=== PATIENT | male | born 1950 | race Caucasian/White ===

== ENCOUNTER 2023-10-22 12:16 | Emergency (ER) | payer BC, MEDICARE ==
[~2023-10-22] VITALS: Ht 185.4 cm; Wt 84.8 kg
[2023-10-22 12:34] VITALS: O2SAT 100
[2023-10-22] MEDS ORDERED: OLME40TA18 PO (12:39)
[2023-10-22] MEDS ORDERED: POLY510P31 PO (12:39)
[2023-10-22] MEDS ORDERED: CEPH500T PO (12:39)
[2023-10-22] MEDS ORDERED: OLME1TAB90 PO (12:39)
[2023-10-22] MEDS ORDERED: MAGNESIUM HYDROXIDE 30 ML LIQUID UDC ONE (13:49)
[2023-10-22] MEDS: MAGNESIUM HYDROXIDE 30 ML LIQUID UDC PO ONE (13:55)
== END 2023-10-22 14:01 | disposition home or self-care (01) ==
LOC: ER 12:25 → EDBD 12:25 → ER 14:01
DX: K58.9 Irritable bowel syndrome, unspecified (principal); Z79.899 Other long term (current) drug therapy; Z88.0 Allergy status to penicillin
CPT/HCPCS: 74018; A4606; A4663